=== PATIENT | male | born 1970 | race American Indian/Alaskan Native ===

== ENCOUNTER 2016-07-21 06:47 | Emergency (ER) | payer OTHER ==
[2016-07-21 06:52] VITALS: BP 119/77; PULSE 67; TEMP 97.4
[2016-07-21 07:56] LABS: PH,URINE 5.5 (4.5-8); URINE APPEARANCE Clear; URINE BILIRUBIN Negative (NEGATIVE); URINE BLOOD Negative (NEGATIVE); URINE COLOR YELLOW; URINE GLUCOSE (UA) Negative (NEGATIVE); URINE KETONE Negative (NEGATIVE); URINE LEUK ESTERASE Negative (NEGATIVE); URINE NITRITE Negative (NEGATIVE); URINE PROTEIN Negative (NEGATIVE); URINE UROBILINOGEN 0.2 E.U/dl (0.2-1.0)
[2016-07-21 08:02] LABS: BASOPHIL 0.5 % (0-2.0); EOSINOPHIL 3.4 % (0-4.5); MCH 30.7 pg (25.7-33.7); MCHC 33.1 g/dl (32.0-35.9); MEAN CELL VOLUME 92.6 fl (80-96); MEAN PLT VOLUME 6.7 fl (7.5-11.1); NEUTROPHILS 44.8 % (42.8-82.8); PLATELET COUNT 258 K/MM3 (134-434); WHITE BLOOD COUNT 4.4 K/mm3 (4.0-10.0)
[2016-07-21 08:22] LABS: ALBUMIN 4.3 g/dl (3.5-5.0); ALK PHOS 43 U/L (32-92); ANION GAP 7 (8-16); BILIRUBIN,TOTAL 0.5 mg/dl (0.2-1.0); CALCIUM 9.1 mg/dl (8.4-10.2); CO2 27 mmol/L (22-28); CREATININE 0.9 mg/dl (0.6-1.3); GLUCOSE,RANDOM 99 mg/dl (74-106); SGOT/AST 31 U/L (10-42); SGPT/ALT 47 U/L (10-40); TOT PROT 7.1 g/dl (6.4-8.3)
--- NOTE | 2016-07-21 10:12 | PDOC ---
History of Present Illness - General History Source: Patient <Attila Best - Last Filed: 07/21/16 11:27> - General History Source: Patient Exam Limitations: No Limitations - History of Present Illness Initial Comments: 07/21/16 16:50 The patient is a 45 year old male, with no significant past medical history who presents to the emergency department with persistent cough and night sweats for a week. The patient reports going to his PCP for these symptoms earlier and was given antibiotics with no significant alleviation. reports that a month ago while at his PCP, there was an abnormality on his EKG and was advised by his PCP to get a CT scan of his chest. He denies chest pain and shortness of breath. He denies headache and dizziness. He denies nausea, vomit, diarrhea and constipation. Allergies: NKDA Past surgical history: denies Social History: denies tobacco, drug, and EtOH use. <José Luis Marcum - Last Filed: 07/21/16 16:58> - General Chief Complaint: Cold Symptoms Stated Complaint: FEVERS AND COUGH Time Seen by Provider: 07/21/16 08:20 Past History - Past Medical History Hypercholesterolemia: Yes - Psycho/Social/Smoking Cessation Hx Anxiety: No Suicidal Ideation: No Smoking History: Never smoked Hx Alcohol Use: No Drug/Substance Use Hx: No Substance Use Type: None <Attial Best - Last Filed: 07/21/16 11:27> <José Luis Marcum - Last Filed: 07/21/16 16:58> - Past Medical History Allergies/Adverse Reactions: Allergies Allergy/AdvReac Type Severity Reaction Status Date / Time No Known Allergies Allergy Verified 07/21/16 06:48 Home Medications: Ambulatory Orders NK [No Known Home Medication] 05/19/16 Review of Systems - Review of Systems Constitutional: Yes: Night Sweats. No: Chills, Diaphoresis, Malaise, Weakness HEENTM: No: Eye Pain, Blurred Vision, Ear Pain Respiratory: Yes: Cough. No: Shortness of Breath, Hemoptysis Cardiac (ROS): No: Chest Pain, Edema, Irregular Heart Rate, Syncope, Chest Tightness ABD/GI: No: Abdominal Distended, Constipated, Diarrhea, Nausea, Vomiting, Abdominal cramping : No: Dysuria, Frequency, Flank Pain, Hematuria, Urgency Musculoskeletal: No: Back Pain, Gout, Joint Pain, Joint Swelling, Muscle Pain, Muscle Weakness, Neck Pain Neurological: No: Headache, Numbness, Paresthesia, Seizure, Tingling, Tremors, Weakness Psychiatric: No: Anxiety, Depression <José Luis Marcum - Last Filed: 07/21/16 16:58> *Physical Exam - Vital Signs Last Vital Signs Temp Pulse Resp BP Pulse Ox 97.4 F L 67 18 119/77 100 07/21/16 06:48 07/21/16 06:48 07/21/16 06:48 07/21/16 06:48 07/21/16 06:48 <Attila Best S - Last Filed: 07/21/16 11:27> - Vital Signs Last Vital Signs Temp Pulse Resp BP Pulse Ox 97.4 F L 67 18 119/77 100 07/21/16 06:48 07/21/16 06:48 07/21/16 06:48 07/21/16 06:48 07/21/16 06:48 - Physical Exam General Appearance: Yes: Nourished, Appropriately Dressed. No: Apparent Distress HEENT: positive: EOMI, KAYA, Normal ENT Inspection, Normal Voice, Symmetrical, TMs Normal, Other (Throat hyperemic.) Neck: positive: Normal Thyroid, Supple. negative: Tender Respiratory/Chest: positive: Wheezing (Lungs occasional wheezing in the left lobe.). negative: Chest Tender, Crackles, Rales, Rhonchi Cardiovascular: positive: Regular Rhythm, Regular Rate Gastrointestinal/Abdominal: positive: Normal Bowel Sounds, Tender, Flat, Soft. negative: Organomegaly, Pulsatile Mass, Distended, Guarding, Rebound, Tenderness Musculoskeletal: positive: Normal Inspection. negative: CVA Tenderness Extremity: positive: Normal Capillary Refill, Normal Inspection, Normal Range of Motion. negative: Tender Integumentary: positive: Normal Color, Dry, Warm Neurologic: positive: rehab physician II-XII NML intact, Fully Oriented, Alert, Normal Mood/ Affect, Normal Response, Motor Strength 5/5 <José Luis Marcum - Last Filed: 07/21/16 16:58> ED Treatment Course - LABORATORY CBC & Chemistry Diagram: 07/21/16 07:47 07/21/16 07:47 - ADDITIONAL ORDERS Additional order review: Laboratory Results 07/21/16 07/21/16 07:47 07:47 Sodium 136 Potassium 4.4 Chloride 102 Carbon Dioxide 27 Anion Gap 7 L BUN 15 Creatinine 0.9 Creat Clearance w eGFR > 60 Random Glucose 99 Calcium 9.1 Total Bilirubin 0.5 D AST 31 ALT 47 H D Alkaline Phosphatase 43 Total Protein 7.1 Albumin 4.3 Urine Color Yellow Urine Appearance Clear Urine pH 5.5 Ur Specific [place] 1.020 Urine Protein Negative Urine Glucose (UA) Negative Urine Ketones Negative Urine Blood Negative Urine Nitrite Negative Urine Bilirubin Negative Urine Urobilinogen 0.2 e.u/dl Ur Leukocyte Esterase Negative 07/21/16 07:47 RBC 4.60 MCV 92.6 MCHC 33.1 RDW 12.0 MPV 6.7 L Neutrophils % 44.8 D Lymphocytes % 34.3 D Monocytes % 17.0 H Eosinophils % 3.4 Basophils % 0.5 - RADIOLOGY Radiology Studies Ordered: Category Date Time Status CHEST CT WITHOUT CONTRAST [CT] Stat CT Scan 07/21/16 08:45 Completed CHEST PA & LAT [RAD] Stat Radiology 07/21/16 07:57 Completed <Attila Best S - Last Filed: 07/21/16 11:27> - LABORATORY CBC & Chemistry Diagram: 07/21/16 07:47 07/21/16 07:47 - ADDITIONAL ORDERS Additional order review: Laboratory Results 07/21/16 07/21/16 07:47 07:47 Sodium 136 Potassium 4.4 Chloride 102 Carbon Dioxide 27 Anion Gap 7 L BUN 15 Creatinine 0.9 Creat Clearance w eGFR > 60 Random Glucose 99 Calcium 9.1 Total Bilirubin 0.5 D AST 31 ALT 47 H D Alkaline Phosphatase 43 Total Protein 7.1 Albumin 4.3 Urine Color Yellow Urine Appearance Clear Urine pH 5.5 Ur Specific [place] 1.020 Urine Protein Negative Urine Glucose (UA) Negative Urine Ketones Negative Urine Blood Negative Urine Nitrite Negative Urine Bilirubin Negative Urine Urobilinogen 0.2 e.u/dl Ur Leukocyte Esterase Negative 07/21/16 07:47 RBC 4.60 MCV 92.6 MCHC 33.1 RDW 12.0 MPV 6.7 L Neutrophils % 44.8 D Lymphocytes % 34.3 D Monocytes % 17.0 H Eosinophils % 3.4 Basophils % 0.5 - RADIOLOGY Radiograph Interpretation: 07/21/16 16:56 CHEST XRAY impressions reported by : Infiltrate is observed in the region of the inferior segment of the left lingula. CHEST CT W/O CONTRAST impressions reported by : Mild chronic lung disease with no evidence of acute pathology within the chest. <José Luis Marcum - Last Filed: 07/21/16 16:58> Medical Decision Making - Medical Decision Making 07/21/16 16:55 Discharged home with a diagnosis of bronchitis and a viral syndrome, with much improvement of his symptoms after breathing treatment. <José Luis Marcum - Last Filed: 07/21/16 16:58> *DC/Admit/Observation/Transfer - Discharge Dispostion Admit: No <Attila Best - Last Filed: 07/21/16 11:27> - Attestations Scribe Attestion: 07/21/16 16:55 Documentation prepared by José Luis Marcum, acting as certified medical records coder for Attila Best MD. <José Luis Marcum - Last Filed: 07/21/16 16:58> Diagnosis at time of Disposition: Viral syndrome - Discharge Dispostion Disposition: HOME Condition at time of disposition: Stable - Patient Instructions Printed Discharge Instructions: DI for Acute Bronchitis, DI for Common Cold - Post Discharge Activity Work/School Note: Back to Work
== END 2016-07-21 10:23 | disposition home or self-care (01) ==
LOC: FER 06:47
DX: B34.9 Viral infection, unspecified (principal)
CPT/HCPCS: 36415; 71020-TC; 71250-TC; 80053; 81003; 85025; 99281-25

== ENCOUNTER 2017-02-19 20:48 | Emergency (ER) | payer OTHER ==
[2017-02-19 20:56] VITALS: BP 116/76; PULSE 65; TEMP 97.4; BMI 27.4
--- NOTE | 2017-02-19 21:21 | PDOC ---
History of Present Illness - General Chief Complaint: Pain Stated Complaint: RT KNEE PAIN Time Seen by Provider: 02/19/17 20:54 - History of Present Illness Initial Comments: This otherwise healthy 46-year-old man presents with a history of right knee problems. Yesterday, when patient walking, he pivoted and his patella slipped out of place. No previous history of patellar subluxation/dislocation. Patient was able to reduce the subluxation but continues to have pain and mild swelling in the knee today. Patient did not fall on the knee at any time. No other symptoms noted. Past History - Past Medical History Allergies/Adverse Reactions: Allergies Allergy/AdvReac Type Severity Reaction Status Date / Time No Known Allergies Allergy Verified 02/19/17 20:49 Home Medications: Ambulatory Orders Diclofenac Sodium [Voltaren -] 75 mg PO BID PRN #20 tablet. 02/19/17 Hypercholesterolemia: Yes Other medical history: DENIES - Psycho/Social/Smoking Cessation Hx Anxiety: No Suicidal Ideation: No Smoking History: Never smoked Information on smoking cessation initiated: No Hx Alcohol Use: No Drug/Substance Use Hx: No Substance Use Type: None Review of Systems - Review of Systems Able to Perform ROS?: Yes Comments:: 12 point review of systems is negative except for what is noted in the history of present illness *Physical Exam - Vital Signs Last Vital Signs Temp Pulse Resp BP Pulse Ox 97.4 F L 65 18 116/76 96 02/19/17 20:48 02/19/17 20:48 02/19/17 20:48 02/19/17 20:48 02/19/17 20:48 - Physical Exam Comments: GENERAL: Adult male, alert and oriented 3, in no acute distress HEAD: Normal with no signs of trauma. EYES: PERRLA, EOMI, sclera anicteric, conjunctiva clear. ENT: Ears normal, nares patent, oropharynx clear without exudates. Dry mucous membranes. NECK: Normal range of motion, supple without lymphadenopathy, JVD, or masses. LUNGS: Breath sounds equal, clear to auscultation bilaterally. No wheezes, and no crackles. HEART:Regular rate and rhythm, normal S1 and S2 without murmur, rub or gallop. ABDOMEN:.normal bowel sounds No guarding,tenderness or rebound.No masses No distention. EXTREMITIES: Right kneemild edema, generalized mild tenderness of patella without deformit. No evidence of current subluxation/dislocation Remainder of the extremity exam is normal NEUROLOGICAL: Cranial nerves II through XII grossly intact. Normal speech. No focal neurological deficits. MUSCULOSKELETAL: Back non-tender to palpation, no CVA tenderness SKIN: Warm, Dry, normal turgor, no rashes or lesions noted. Medical Decision Making - Medical Decision Making Right knee x-ray shows no evidence of subluxation or dislocation. No evidence of fracture or effusion. Results discussed with patient and his . Patient's occupation requires long hours of standing. Patient will be given work documentation (no work until February 24). Knee immobilizer placed on the right knee. Prescription for diclofenac 75 mg twice a day as needed will be sent to his pharmacy. Otherwise , the patient can use [id number] nonsteroidal anti-inflammatories as needed for milder pain. *DC/Admit/Observation/Transfer Diagnosis at time of Disposition: Dislocation of right patella Qualifiers: Encounter type: initial encounter Qualified Code(s): S83.004A - Unspecified dislocation of right patella, initial encounter - Discharge Dispostion Disposition: HOME Condition at time of disposition: Stable - Prescriptions Prescriptions: Diclofenac Sodium [Voltaren -] 75 mg PO BID PRN #20 tablet.dr VALDOVINOS Reason: Pain - Patient Instructions Printed Discharge Instructions: Patellar Dislocation Additional Instructions: ice/elevation of right leg for the next 24 [address] K[address] immobilizer in place on right leg during the day until seen by orthopedist No work tomorrow Ibuprofen/acetaminophen for mild pain Diclofenac 75 mg twice a day (with food) as needed for moderate to severe pain Follow-up with your orthopedist within the next 5 days - Post Discharge Activity Work/School Note: Back to Work
[2017-02-19] MEDS ORDERED: KETOROLAC TROMETHAMINE 60 MG/2 ML VIAL IM ONE (21:38)
[2017-02-19] MEDS ORDERED: KETOROLAC TROMETHAMINE 60 MG/2 ML VIAL ONE (21:41)
== END 2017-02-19 22:35 | disposition home or self-care (01) ==
LOC: FER 20:48
PROC: 2W3QX1Z Immobilization of Right Lower Leg using Splint (ICD-10-PCS; principal; 2017-02-19)
DX: S83.004A Unspecified dislocation of right patella, initial encounter (principal)
CPT/HCPCS: 73562-TC-RT; 99283-25